=== PATIENT | female | born 1950 | race Caucasian/White ===

== ENCOUNTER 2016-10-27 01:06 | Emergency (ER) | payer OTHER ==
[~2016-10-27] VITALS: Ht 149.9 cm; Wt 87.1 kg
[~2016-10-27 01:06] MED LIST: ADVAIRDISKUS; ALBUTEROL2.5 MG/32 IH; AMBIEN 5 MG TABL5 M1 PO; AMBIEN PO; ASPIRIN81 M2 PO; B12INJ IM; FISH OIL 1,0001 EAC5 PO; LIPITOR; LIPITOR40 MG PO; LOPRESSOR; LOPRESSOR 12.12.5 MG PO; METOPROLOL PO; MULTIVITAMINS PO; PREDNISONE 10 M10 MG PO; ZOFRAN ODT4 MG PO; ZOLOFT; ZOLOFT50 MG PO; ZYRTEC; ZYRTEC 10 MG TA10 M1 PO
[2016-10-27] MEDS ORDERED: AMLODIPINE BESY10 MG PO (01:25)
[2016-10-27] MEDS ORDERED: NAPROSYN500 MG PO ×2 (01:25→02:24)
[2016-10-27] MEDS ORDERED: B/P MED PO (01:26)
[2016-10-27] MEDS ORDERED: FLEXERIL PO (02:24)
[2016-10-28] MEDS ORDERED: NORCO 5-325 TA1 EACH PO (19:29)
[2016-10-28] MEDS ORDERED: SENNA8.6 MG PO (19:33)
== END 2016-10-27 02:21 | disposition home or self-care (01) ==
LOC: ER 01:06
DX: S01.01XA Laceration without foreign body of scalp, initial encounter (principal); I10 Essential (primary) hypertension; J45.909 Unspecified asthma, uncomplicated; E78.00 Pure hypercholesterolemia, unspecified; F32.9 Major depressive disorder, single episode, unspecified; F41.9 Anxiety disorder, unspecified; F10.99 Alcohol use, unspecified with unspecified alcohol-induced disorder; H40.9 Unspecified glaucoma; Z98.890 Other specified postprocedural states; Z91.040 Latex allergy status; Z91.048 Other nonmedicinal substance allergy status; W18.39XA Other fall on same level, initial encounter; Y93.01 Activity, walking, marching and hiking; Y92.89 Other specified places as the place of occurrence of the external cause; Y99.8 Other external cause status

== ENCOUNTER 2016-10-28 17:37 | Emergency (ER) | payer OTHER ==
[~2016-10-28] VITALS: Ht 149.9 cm; Wt 87.1 kg
[~2016-10-28 17:37] MED LIST changes: +AMLODIPINE BESY10 MG PO; +B/P MED PO; +FLEXERIL PO; +NAPROSYN500 MG PO
[2016-10-28] MEDS ORDERED: NORCO 5-325 TA1 EACH PO (19:29)
[2016-10-28] MEDS ORDERED: SENNA8.6 MG PO (19:33)
== END 2016-10-28 19:49 | disposition home or self-care (01) ==
LOC: ER 17:37
DX: S20.212A Contusion of left front wall of thorax, initial encounter (principal); J45.909 Unspecified asthma, uncomplicated; I10 Essential (primary) hypertension; E78.00 Pure hypercholesterolemia, unspecified; F32.9 Major depressive disorder, single episode, unspecified; F41.9 Anxiety disorder, unspecified; F10.99 Alcohol use, unspecified with unspecified alcohol-induced disorder; Z87.442 Personal history of urinary calculi; Z98.890 Other specified postprocedural states; Z90.49 Acquired absence of other specified parts of digestive tract; Z90.89 Acquired absence of other organs; Z91.040 Latex allergy status; Z88.8 Allergy status to other drugs, medicaments and biological substances; W19.XXXA Unspecified fall, initial encounter; Y93.89 Activity, other specified; Y92.89 Other specified places as the place of occurrence of the external cause; Y99.8 Other external cause status

== ENCOUNTER 2018-03-11 08:08 | Inpatient (IN) | payer OTHER ==
[~2018-03-11] VITALS: Ht 149.9 cm; Wt 87.5 kg
--- NOTE | ~2018-03-11 | HC ---
[facility] [place] [address] CONSULTATION Name: DEBRA BARLOW Room #: 350-P [facility] IN .R.#: [id number] Admission: 03/11/18 Attend Phys: Chloe Gomez MD Discharge: Date of : 54 Report #: [id number] THIS REPORT FOR: //name// CC: Shahbaz Zavala Chloe Gomez DATE OF SERVICE: 03/12/2018 HISTORY OF PRESENT ILLNESS: The patient is a 67-year-old white female who is legally blind with a history of worsening headache, dizziness and decreased balance, especially over the last week. She notes she has been essentially furniture walking with the decreased balance the last week. Denies any specific falls. CT and MRI showed what appeared to be posttraumatic changes, left posterior cerebellar, right posterior temporal. Neurology is currently evaluating further. She is undergoing further diagnostic testing and was leaving for an echocardiogram after my evaluation. PAST MEDICAL HISTORY: Complete blindness per her history. She notes that she had corneal surgery, which did not go well. She indicated she can even see the images. She also has a history of intermittent migraines, hypertension, elevated lipids, and exogenous obesity. Gastric bypass in 2002, losing 120 pounds. She has had carpal tunnel releases, open kidney stone extraction, excess skin removed, breast reduction, depression, and anxiety. MEDICATIONS: Please see the full medication listing; these includes vitamins, herbals, and supplements. ALLERGIES: LATEX AND ADHESIVE TAPE. HABITS: No history of tobacco or alcohol abuse. SOCIAL HISTORY: Lives in a house with her son. He lives upstairs. She lives on the ground floor. There are no steps to get in. She did not utilize gait aids. Her son works. REVIEW OF SYSTEMS: She did not offer any current complaints of chest pain, shortness of breath, or abdominal discomfort. She notes that she does have a headache. She does have blindness and that she has the recent decreased balance. PHYSICAL EXAMINATION: GENERAL: This is a 67-year-old obese white female, pleasant, in no obvious distress. VITAL SIGNS: Temperature 98.3, pulse 60, respirations 16, blood pressure 182/92. NEUROLOGIC: She is alert. Facies appeared symmetric, noted to be legally [facility] [address] [place] [address] CONSULTATION Name: DEBRA BARLOW Room #: 350-[facility] IN [facility].#: [id number] Admission: 03/11/18 Attend Phys: Chloe Gomez MD Discharge: Date of : 54 Report #: [id number] blind. She is right handed. Functional range of motion of both upper extremities. Strength is a grade 4/5. DTRs are 1. She did reasonably well with [id number]. Lower extremities, no focal calf swelling, functional range of motion, strength is a grade 4/5. She did reasonably well with bed to chair transfer with the biggest issues just being locating where she was with her blindness/decreased vision. ASSESSMENT: A 67-year-old white female with the following problem list: 1. 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 Further evaluation is underway. 2. Worsening headache. 3. Decreased balance, especially the last week prior to admission. 4. History of intermittent migraine headaches. 5. Hypertension. 6. Elevated lipids. 7. Exogenous obesity. 8. Past history of weight reduction surgery with gastric bypass. PLAN: Further evaluation is underway to undergo echocardiogram. Agree with physical therapy ordered and we will add occupational therapy. We will need to see how she does as far as basic mobility and ADLs and see what her current functional level is. We will be glad to follow along with you regarding her rehab therapy needs. By: [id number] Ulises Arias MD /nt
--- NOTE | ~2018-03-11 | HC ---
[facility] [place] [address] CONSULTATION Name: DEBRA BARLOW Room #: 350-P [facility] IN .R.#: [id number] Admission: 03/11/18 Attend Phys: Chloe Gomez MD Discharge: Date of : 54 Report #: [id number] THIS REPORT FOR: //name// CC: Shahbaz Zavala Chloe Gomez DATE OF SERVICE: 03/11/2018 HISTORY OF PRESENT ILLNESS: This is a 67-year-old female patient who was evaluated by me because about 1 week ago, she started having difficulty with ambulation. She does not remember any trauma, but her scalp is tender and they have reported a scalp hematoma as well as multiple what looks like contusions of the brain. She has multiple contusions on the leg because she said she has been bumping into the things. This patient has pretty significant ambulation difficulty. She does not fluctuate. It has not become any worst in last week or so when it started. She was having also a headache. She thought it was because of her migraine. REVIEW OF SYSTEMS: Indicate that this patient is blind. She said it is because of the prematurity. 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 Usually, she is able to function well, but since she has become incoordinated for a week, she is not able to function very well. She does have multiple histories in the past, which include asthma, hypertension, gastric bypass, carpal tunnel release, glaucoma, kidney stones, , wisdom teeth removal, depression, anxiety. This was her relevant 14-point review of system. PAST MEDICAL HISTORY: Positive for blindness. FAMILY HISTORY: Noncontributory. SOCIAL HISTORY: She does not smoke. PHYSICAL EXAMINATION: Indicate she is alert. She is responsive. She is oriented. She can follow simple command. She is obese. She can hear well, but she is otherwise blind. She has bruises in her leg. She moves all 4 extremities. Her position sense is intact. Her reflexes are symmetrical. There is no meningeal sign. There is no carotid bruit in this patient. Cardiac examinations appear unremarkable. No respiratory difficulty was noted. I reviewed the patient's MRI films. IMPRESSION: It is possible all of these are contusions of the brain. Pretty unusual history because she does not know what is she when hit her head. Hemorrhagic metastasis need to be excluded. RECOMMENDATIONS: [address] [address] CONSULTATION Name: DEBRA BARLOW Room #: 350-P [facility] IN .#: [id number] Admission: 03/11/18 Attend Phys: Chloe Gomez MD Discharge: Date of : 54 Report #: [id number] 1. We will get an MRI done. 2. We will get a PT, PTT done. 3. We will get her evaluated by rehab. 4. We will do some more workup. 5. I will suggest getting a chest x-ray done. I spent more than 50 minutes of time taking care of this patient today and majority of that time was spent counseling the patient and coordinating her care. Thank you very much for this referral. By: [id number] Lucas Solis MD /nt
[~2018-03-11 08:08] MED LIST changes: +NORCO 5-325 TA1 EACH PO; +SENNA8.6 MG PO
[2018-03-11 09:20] LABS: ABSOLUTE NEUTROPHILS 5.7 thou/uL (1.4-8.2); BASOPHILS 0.6 % (0.0-2.0); HEMATOCRIT 42.6 % (37.0-47.0); HEMOGLOBIN 14.2 gm/dL (12.0-15.0); LYMPHOCYTES 15.1 % (24.0-44.0); MCH 31.3 pg (26.0-34.0); MCHC 33.4 g/dL (28.0-37.0); MCV 93.6 fL (80.0-100.0); MONOCYTES 11.7 % (1.0-8.0); PLATELET COUNT 256 thou/uL (150-400); POLYS 70.6 % (36.0-66.0); RBC 4.55 mil/uL (4.20-5.00); RDW 13.5 % (10.5-14.5); WBC 8.1 thou/uL (4.0-11.0)
[2018-03-11 09:23] LABS: CALCIUM 9.5 mg/dL (8.5-10.1); CREATININE 1.2 mg/dL (0.6-1.0); POTASSIUM 4.9 mmol/L (3.5-5.1)
[2018-03-11 12:48] VITALS: BP 166/90
[2018-03-11 13:25] VITALS: BP 151/84; BP 158/78
[2018-03-11 13:26] VITALS: BP 151/83
[2018-03-11 13:27] LABS: CHOLESTEROL 227 mg/dL (<200); HDL CHOLESTEROL 79 mg/dL (>40); LDL CHOLESTEROL 134 mg/dL (<100); TC:HDL 2.9 Ratio (Not establshd); TRIGLYCERIDE 71 mg/dL (<150); VLDL 14 mg/dL (<40)
[2018-03-11 16:27] VITALS: BP 145/75
[2018-03-11 19:45] VITALS: BP 154/94
[2018-03-11 22:08] LABS: APTT 27.7 Seconds (24.5-32.8); PROTIME 9.8 Seconds (9.3-11.4)
[2018-03-12] VITALS (8 sets, daily range): BP systolic 147–193; BP diastolic 84–108
[2018-03-12 05:37] LABS: HEMATOCRIT 39.1 % (37.0-47.0); HEMOGLOBIN 13.2 gm/dL (12.0-15.0); MCH 31.8 pg (26.0-34.0); MCHC 33.7 g/dL (28.0-37.0); MCV 94.3 fL (80.0-100.0); RBC 4.14 mil/uL (4.20-5.00); RDW 13.7 % (10.5-14.5); WBC 8.1 thou/uL (4.0-11.0)
[2018-03-12 05:52] LABS: CALCIUM 8.7 mg/dL (8.5-10.1); CREATININE 1.2 mg/dL (0.6-1.0); POTASSIUM 3.9 mmol/L (3.5-5.1)
[2018-03-13] VITALS (9 sets, daily range): BP systolic 147–171; BP diastolic 84–98
[2018-03-13] MEDS ORDERED: COREG6.25 MG PO (15:11)
[2018-03-14 02:11] VITALS: BP 177/96
[2018-03-14 03:10] VITALS: BP 156/71
[2018-03-14 03:11] VITALS: BP 156/71
[2018-03-14 07:05] VITALS: BP 157/85
[2018-03-14 09:48] VITALS: BP 165/86
[2018-03-14 10:05] VITALS: BP 165/86
== END 2018-03-14 10:11 | disposition home health service (06) | DRG 85 ==
LOC: ER 08:08 → EROBS 10:59 → 3W 10:59 → EROBS 12:53 → 3W 13:03 → ENTRNSPT 03-14 09:43 → EDTRNSPTSTS 03-14 09:48 → 3W 03-14 10:11
PROVIDERS: Emergency Medicine; Internal Medicine; Psychiatry & Neurology Neuromuscular Medicine
DX: S06.370A Contusion, laceration, and hemorrhage of cerebellum without loss of consciousness, initial encounter (principal); G93.41 Metabolic encephalopathy; J45.909 Unspecified asthma, uncomplicated; E78.00 Pure hypercholesterolemia, unspecified; H40.9 Unspecified glaucoma; H54.8 Legal blindness, as defined in USA; K08.409 Partial loss of teeth, unspecified cause, unspecified class; F32.9 Major depressive disorder, single episode, unspecified; F41.9 Anxiety disorder, unspecified; G43.909 Migraine, unspecified, not intractable, without status migrainosus; E66.09 Other obesity due to excess calories; E78.5 Hyperlipidemia, unspecified; I12.9 Hypertensive chronic kidney disease with stage 1 through stage 4 chronic kidney disease, or unspecified chronic kidney disease; M62.84 Sarcopenia; M19.90 Unspecified osteoarthritis, unspecified site; E53.8 Deficiency of other specified B group vitamins; N18.3 Chronic kidney disease, stage 3 (moderate); W18.39XA Other fall on same level, initial encounter; Y93.89 Activity, other specified; Y92.89 Other specified places as the place of occurrence of the external cause; Y99.8 Other external cause status; Z98.42 Cataract extraction status, left eye; Z98.41 Cataract extraction status, right eye; Z90.49 Acquired absence of other specified parts of digestive tract; Z91.040 Latex allergy status; Z68.39 Body mass index [BMI] 39.0-39.9, adult; Z98.84 Bariatric surgery status; Z79.899 Other long term (current) drug therapy; Z79.82 Long term (current) use of aspirin; Z80.3 Family history of malignant neoplasm of breast
CPT/HCPCS: 10879

== ENCOUNTER 2018-07-05 17:17 | Emergency (ER) | payer OTHER ==
[~2018-07-05] VITALS: Ht 149.9 cm; Wt 87.1 kg
[~2018-07-05 17:17] MED LIST changes: +COREG6.25 MG PO
[2018-07-05] MEDS ORDERED: BACTRIM DS TAB1 EACH PO (19:02)
[2018-07-05 19:10] VITALS: BP 162/66
== END 2018-07-05 19:14 | disposition home or self-care (01) ==
LOC: ER 17:17
DX: S71.111A Laceration without foreign body, right thigh, initial encounter (principal); J45.909 Unspecified asthma, uncomplicated; I10 Essential (primary) hypertension; E78.00 Pure hypercholesterolemia, unspecified; F32.9 Major depressive disorder, single episode, unspecified; F41.9 Anxiety disorder, unspecified; G89.29 Other chronic pain; Z91.040 Latex allergy status; Z88.8 Allergy status to other drugs, medicaments and biological substances; Z98.890 Other specified postprocedural states; Z90.49 Acquired absence of other specified parts of digestive tract; W25.XXXA Contact with sharp glass, initial encounter; Y93.89 Activity, other specified; Y92.89 Other specified places as the place of occurrence of the external cause; Y99.8 Other external cause status